=== PATIENT | female | born 1955 | race Caucasian/White ===

== ENCOUNTER → 2016-12-10 | Outpatient (CLI) | payer OTHER ==
[~2016-12-10] MED LIST: ALEVE220 MG PO; BENICAR HCT 201 EACH PO; CALCIUM 600 +1 EAC1 PO; CELEBREX 200 M200 MG PO; CYMBALTA20 MG PO; DILAUDID2 M1 PO; DYAZIDE 37.5-21 EACH PO; FENTANYL 1100 MCG/HR TP; GLUCOSAMINE &1 EACH PO; NEURONTIN 300300 M1 PO; NYSTATIN-TRIAMC15 G1 TP; PREVACID15 MG PO; TYLENOL P.M. E1 EAC3 PO; XANAX 0.5 MG0.5 M1 PO
== END ==
LOC: ULTRA 08:21
DX: N83.202 Unspecified ovarian cyst, left side (principal)

== ENCOUNTER → 2017-12-16 | Outpatient (CLI) | payer OTHER ==
[~2017-12-16] MED LIST changes: +CARVEDILOL12.5 MG PO; +COMPAZINE10 MG PO; +COZAAR 50 MG TA50 M1 PO; +GEODON20 MG PO; +GEODON40 MG PO; +MIRAPEX0.5 MG PO; +NIFEDIPINE ER30 M1 PO; +XANAX1 MG PO; +ZANTAC 150MG T150 MG PO
== END ==
LOC: CAT 11:03
DX: M43.26 Fusion of spine, lumbar region (principal); G89.29 Other chronic pain

== ENCOUNTER 2018-02-22 03:18 | Inpatient (IN) | payer OTHER ==
[~2018-02-22] VITALS: Ht 152.4 cm; Wt 56.2 kg
[2018-02-22] VITALS (7 sets, daily range): BP systolic 115–149; BP diastolic 72–97
[2018-02-22] MEDS ORDERED: CLONAZEPAM 1 MG1 M1 PO (04:02)
[2018-02-22] MEDS ORDERED: MIRAPEX0.5 MG PO (04:02)
[2018-02-22] MEDS ORDERED: DURAGESIC1 EAC4 INTRADERM (04:03)
[2018-02-22 04:06] LABS: ABSOLUTE NEUTROPHILS 3.8 thou/uL (1.4-8.2); BASOPHILS 0.8 % (0.0-2.0); HEMATOCRIT 40.1 % (37.0-47.0); HEMOGLOBIN 14.6 gm/dL (12.0-15.0); LYMPHOCYTES 22.3 % (24.0-44.0); MCHC 36.4 g/dL (28.0-37.0); MCV 90.5 fL (80.0-100.0); MONOCYTES 11.6 % (1.0-8.0); PLATELET COUNT 213 thou/uL (150-400); POLYS 63.3 % (36.0-66.0); RBC 4.43 mil/uL (4.20-5.00); RDW 13.3 % (10.5-14.5)
[2018-02-22 04:09] LABS: CALCIUM 9.4 mg/dL (8.5-10.1); CREATININE 0.9 mg/dL (0.6-1.0); POTASSIUM 3.5 mmol/L (3.5-5.1)
--- NOTE | 2018-02-22 06:11 | NUR ---
PATIENT ARRIVED PER CART. IS ALERT X 1-2. VERY LETHARGIC. AND SOMULANCE. WITH AMS. NO SKIN ISSUES. SKIN WARM AND DRY. WALKED FROM CART TO BED. TELE- SHOWS NSR. LUNGS CTA. SOME SLURRED SPEECH NOTED, BUT IS GETTING BETTER IN TIME. WILL BRING HER LIST OF ALLERGIES TO RN. REMAINS DROWSY. NO EDEMA NOTED. IV SITE HEALTHY IN RIGHT HAND. TAKING REGULAR DIET. WILL MONITOR FOR CHANGES. CONT PLAN OF CARE.
--- NOTE | 2018-02-22 06:27 | NUR ---
PATIENT WAS ALSO ADMITTED TO TO UNABLE TO CARRY ON A CONVERSATION, AND A WEAK UNSTEADY GAIT THE LAST [address]. [address] STOPPED ALL OF HER MEDS AT 0700 ON 02/21. HER FENTANYL PATCH WAS LAST PLACED ON 02/22 AT 0300. ER DID REMOVED THE FENTANYL PATCH THIS AM. WENT HOME TO GET LIST OF HER ALLERGIES. PATIENT EATING A SANDWISH AND WATER PER HER REQUEST. IS ALERT X 3, NOW. CONT TO MONITOR.
--- NOTE | 2018-02-22 06:47 | NUR ---
PATIENT REFUSED SCD'S
--- NOTE | 2018-02-22 19:35 | NUR ---
PT STABLE THROUGHOUT SHIFT. SOME PERIODS OF CONFUSION AND IMPULSIVENESS. PT RESTING COMFORTABLY, BED ALARM ON.
[2018-02-22 23:46] LABS: URINE BILIRUBIN NEGATIVE (Negative); URINE CLARITY CLEAR; URINE COLOR YELLOW; URINE GLUCOSE-RANDOM* NEGATIVE (Negative); URINE KETONES NEGATIVE (Negative); URINE PROTEIN (DIPSTICK) NEGATIVE (Negative); URINE SPECIFIC GRAVITY 1.015 (1.005-1.035)
[2018-02-22 23:47] LABS: URINE BLOOD NEGATIVE (Negative); URINE LEUKOCYTES-REFLEX NEGATIVE (Negative); URINE NITRITE-REFLEX NEGATIVE (Negative); URINE UROBILINOGEN 0.2 E.U./dl (0.2-1.0)
[2018-02-22 23:51] LABS: AMP/METHAMP Negative (Negative); BARBITURATES Negative (Negative); BENZODIAZEPINES POSITIVE (Negative); COCAINE Negative (Negative); METHADONE Negative (Negative); OPIATES Negative (Negative); PCP Negative (Negative)
[2018-02-23] MEDS ORDERED: MIRAPEX 0.250.25 M1 PO (07:41)
[2018-02-23] MEDS ORDERED: NORVASC5 MG PO (07:41)
[2018-02-23 07:48] VITALS: BP 134/96
== END 2018-02-23 08:09 | disposition home or self-care (01) | DRG 91 ==
LOC: ER 03:18 → EROBS 04:35 → 4W 05:17
PROVIDERS: Emergency Medicine; ADMIT Family Medicine
DX: G92 Toxic encephalopathy (principal); E43 Unspecified severe protein-calorie malnutrition; I10 Essential (primary) hypertension; K21.9 Gastro-esophageal reflux disease without esophagitis; R47.81 Slurred speech; F41.9 Anxiety disorder, unspecified; K58.9 Irritable bowel syndrome, unspecified; L40.9 Psoriasis, unspecified; G25.81 Restless legs syndrome; F31.9 Bipolar disorder, unspecified; G89.29 Other chronic pain; F51.04 Psychophysiologic insomnia; M54.9 Dorsalgia, unspecified; F17.210 Nicotine dependence, cigarettes, uncomplicated; Z98.891 History of uterine scar from previous surgery; Z88.1 Allergy status to other antibiotic agents; Z72.820 Sleep deprivation; Z90.710 Acquired absence of both cervix and uterus; Z88.8 Allergy status to other drugs, medicaments and biological substances; Z88.0 Allergy status to penicillin; Z82.49 Family history of ischemic heart disease and other diseases of the circulatory system
CPT/HCPCS: 10045

== ENCOUNTER → 2018-07-21 | Outpatient (CLI) | payer OTHER ==
[~2018-07-21] MED LIST changes: +CLONAZEPAM 1 MG1 M1 PO; +DURAGESIC1 EAC4 INTRADERM; +MIRAPEX 0.250.25 M1 PO; +NORVASC5 MG PO
== END ==
LOC: CAT 07:25
PROVIDERS: Nurse Practitioner
DX: J43.2 Centrilobular emphysema (principal)

== ENCOUNTER 2018-07-29 17:48 | Emergency (ER) | payer OTHER ==
[~2018-07-29] VITALS: Ht 152.4 cm; Wt 57.6 kg
[2018-07-29] MEDS ORDERED: TYLENOL EXTRA500 MG PO (18:53)
[2018-07-29 19:25] VITALS: BP 163/88
== END 2018-07-29 19:25 | disposition home or self-care (01) ==
LOC: ER 17:48
DX: S93.492A Sprain of other ligament of left ankle, initial encounter (principal); I10 Essential (primary) hypertension; K21.9 Gastro-esophageal reflux disease without esophagitis; G89.29 Other chronic pain; K58.9 Irritable bowel syndrome, unspecified; L40.9 Psoriasis, unspecified; Z98.890 Other specified postprocedural states; Z90.710 Acquired absence of both cervix and uterus; W18.39XA Other fall on same level, initial encounter; Y93.89 Activity, other specified; Y92.096 Garden or yard of other non-institutional residence as the place of occurrence of the external cause; Y99.8 Other external cause status

== ENCOUNTER → 2018-09-14 | Outpatient (CLI) | payer OTHER ==
[~2018-09-14] MED LIST changes: +TYLENOL EXTRA500 MG PO
== END ==
LOC: ULTRA 08:55
DX: R10.9 Unspecified abdominal pain (principal); R14.0 Abdominal distension (gaseous); Z91.048 Other nonmedicinal substance allergy status; Z88.8 Allergy status to other drugs, medicaments and biological substances

== ENCOUNTER 2019-01-18 14:25 | Emergency (ER) | payer OTHER ==
[~2019-01-18] VITALS: Ht 152.4 cm; Wt 63.5 kg
[2019-01-18] MEDS ORDERED: ALPRAZOLAM1 MG PO (16:37)
[2019-01-18] MEDS ORDERED: NORVASC 2.5 MG2.5 M1 PO (16:38)
[2019-01-18] MEDS ORDERED: TRAZODONE HCL100 MG PO (16:38)
[2019-01-18] MEDS ORDERED: MIRAPEX1 MG PO (16:39)
[2019-01-18] MEDS ORDERED: BUPROPION XL300 MG PO (16:40)
[2019-01-18] MEDS ORDERED: SEROQUEL 50 MG50 M1 PO (16:41)
[2019-01-18] MEDS ORDERED: PROTONIX40 M2 PO (16:41)
[2019-01-18] MEDS ORDERED: HYDROXYZINE HCL10 M1 PO (16:41)
[2019-01-18] MEDS ORDERED: BACLOFEN 10MG T10 MG PO (16:42)
[2019-01-18 16:47] LABS: HEMATOCRIT 46.3 % (37.0-47.0); HEMOGLOBIN 15.9 gm/dL (12.0-15.0); MCH 30.8 pg (26.0-34.0); MCHC 34.3 g/dL (28.0-37.0); MCV 89.9 fL (80.0-100.0); RBC 5.15 mil/uL (4.20-5.00); RDW 13.2 % (10.5-14.5); WBC 8.7 thou/uL (4.0-11.0)
[2019-01-18 17:00] LABS: CALCIUM 9.8 mg/dL (8.5-10.1); CREATININE 0.9 mg/dL (0.6-1.0); POTASSIUM 3.7 mmol/L (3.5-5.1)
[2019-01-18 17:06] LABS: ALBUMIN 3.8 g/dL (3.4-5.0); TOTAL BILIRUBIN 0.4 mg/dL (<0.1-1.0); TOTAL PROTEIN 7.8 g/dL (6.4-8.2)
[2019-01-18 17:31] LABS: ABSOLUTE NEUTROPHILS 5.5 thou/uL (1.4-8.2); ATYPICAL LYMPHS 1 %
[2019-01-18 17:32] LABS: LARGE PLATELETS RARE; PLATELET COUNT 262 thou/uL (150-400)
[2019-01-18 18:06] LABS: MAGNESIUM 2.1 mg/dL (1.8-2.4); TROPONIN-I <0.06 ng/mL (<0.06)
[2019-01-18 18:07] LABS: URINE BLOOD NEGATIVE (Negative); URINE COLOR YELLOW; URINE GLUCOSE-RANDOM* NEGATIVE (Negative); URINE KETONES NEGATIVE (Negative); URINE LEUKOCYTES-REFLEX NEGATIVE (Negative); URINE NITRITE-REFLEX NEGATIVE (Negative); URINE PROTEIN (DIPSTICK) NEGATIVE (Negative); URINE SPECIFIC GRAVITY >= 1.030 (1.005-1.035); URINE UROBILINOGEN 0.2 E.U./dl (0.2-1.0)
[2019-01-18 18:09] LABS: ICTOTEST (BILI CONFIRMATORY) Negative (Negative); URINE BILIRUBIN NEGATIVE (Negative); URINE CLARITY CLOUDY
[2019-01-18 18:10] VITALS: BP 187/109
[2019-01-18 18:13] LABS: AMP/METHAMP Negative (Negative); BARBITURATES Negative (Negative); BENZODIAZEPINES POSITIVE (Negative); COCAINE Negative (Negative); METHADONE Negative (Negative); OPIATES Negative (Negative); PCP Negative (Negative)
--- NOTE | 2019-01-19 08:31 | EKG ---
[address] [place] [address] ELECTROCARDIOGRAM REPORT Name: PATRICA GARCIA Room #: DEP [facility] [id number] Admission: 01/18/19 Attend Phys: Discharge: 01/18/19 Date of : 57 Report #: [id number] THIS REPORT FOR: //name// [facility] ED Test Date: 2019-01-18 Test Time: 17:47:18 Pat Name: PATRICA GARCIA Department: Room: Gender: F Overhauler: : 1955 Requested By: Asaf Armenta Order Number: [id number] MD: Kevin Villela Measurements Intervals [place] Rate: 86 P: AL: QRS: 116 QRSD: 95 T: QT: 369 QTc: 442 Interpretive Statements Sinus rhythm Poor R wave progression Nonspecific ST and T wave abnormality Compared to ECG 11/06/2017 22:18:34 Nonspecific change in the ST and T-wave segments Electronically Signed On 01-19-2019 8:31:22 PATIENT SERVICE COORDINATOR by Kevin Villela [email or web address] <ELECTRONICALLY SIGNED> By: Kevin Villela MD, [facility] 01/19/19 0831 46 46 Kevin Villela MD, FAC /EPI
== END 2019-01-18 18:46 | disposition home or self-care (01) ==
LOC: ER 14:25
PROVIDERS: Emergency Medicine
DX: R41.82 Altered mental status, unspecified (principal); T42.8X5A Adverse effect of antiparkinsonism drugs and other central muscle-tone depressants, initial encounter; G89.29 Other chronic pain; M54.9 Dorsalgia, unspecified; I10 Essential (primary) hypertension; K21.9 Gastro-esophageal reflux disease without esophagitis; Z98.890 Other specified postprocedural states; Z90.710 Acquired absence of both cervix and uterus; Z86.018 Personal history of other benign neoplasm; Z88.0 Allergy status to penicillin; Z88.2 Allergy status to sulfonamides; Z88.5 Allergy status to narcotic agent; Z87.891 Personal history of nicotine dependence; Y92.89 Other specified places as the place of occurrence of the external cause

== ENCOUNTER → 2019-02-19 | Outpatient (CLI) | payer OTHER ==
[~2019-02-19] MED LIST changes: +ALPRAZOLAM1 MG PO; +BACLOFEN 10MG T10 MG PO; +BUPROPION XL300 MG PO; +HYDROXYZINE HCL10 M1 PO; +MIRAPEX1 MG PO; +NORVASC 2.5 MG2.5 M1 PO; +PROTONIX40 M2 PO; +SEROQUEL 50 MG50 M1 PO; +TRAZODONE HCL100 MG PO
== END ==
LOC: MRI 12:58
DX: I63.9 Cerebral infarction, unspecified (principal); Z88.8 Allergy status to other drugs, medicaments and biological substances

== ENCOUNTER → 2019-03-02 | Outpatient (CLI) | payer OTHER ==
[~2019-03-02] VITALS: Ht 152.4 cm; Wt 64.0 kg
[~2019-03-02] MED LIST changes: +ASA81BEC PO; +BUPROPION PO; -BUPROPION XL300 MG PO; -NORVASC 2.5 MG2.5 M1 PO; +NORVASC10 MG PO
[2019-03-02 08:21] VITALS: BP 146/90
--- NOTE | 2019-03-02 08:45 | NUR ---
Pain Clinic Assessment: 1. History of Osteoarthritis: BACK History of Rheumatoid Arthritis: N 2. Height: 5 ft. 0 in. 152.4 cm. Weight: 141.0 lb. oz. 63.957 kg. Patient's BMI: 27.5 3. Vital Signs: BP: 146/90 Pulse: 82 Resp: 16 Temp: 02 Sat: 98 ECG Mon: 4. Pain Intensity: 7 5. Fall Risk: Dizziness: Y Needs help standing or walking: Y Fallen in the last 3 months: N Fall risk comments: 6. Patient on Blood Thinner: None 7. History of Hypertension: Y 8. Opioid Therapy greater than 6 weeks: N Opiate Contract Signed: 9. Risk Assessment Tool Provided: 0-3-LOW RISK 10. Functional Assessment Tool: 11. Recreational Drug Use: Never Drug Type: Tobacco Use: Current Every Day Smoker Tobacco Type: Cigarettes Amount or Packs/day: 1/2 How Many Years: 30 Alcohol Use: No Frequency: Quant:
--- NOTE | 2019-03-09 08:39 | HPC ---
[facility] [address] [place] [address] PAIN MANAGEMENT CONSULTATION Name: PATRICA GARCIA Room #: REG KARLEE Brian.#: [id number] Admission: 03/02/19 Attend Phys: Bruce Fulton DO Discharge: Date of : 57 Report #: [id number] THIS REPORT FOR: //name// CC: Bruce Da Silva NP DATE OF SERVICE: 03/02/2019 CHIEF COMPLAINT: Bilateral upper buttock pain. HISTORY OF PRESENT ILLNESS: As you know, the patient is a very pleasant 63-year-old female referred to our service by nurse practitioner Renetta Da Silva with [facility] to undergo bilateral SI joint injections under fluoroscopic guidance to address bilateral low back pain. The patient indicates pain has been present since 06/02/2015. She sought evaluation with [facility] at their visit of 02/08/2019 and advised a trial of SI joint injections. She indicates no specific injury or trauma that may have led to continuation of low back symptoms. Recent CT examination was unremarkable for evidence of fracture or subluxation. There is posterior fusion at L3 through L5, which appears unremarkable. Due to these lack of significant findings, the patient was referred to our clinic to trial injection therapy. The patient indicates today pain is constant. She describes the pain as burning and aching, places current pain score 6/10, daily average of 7/10, worst pain has been 9/10. The patient states that bending and stooping over exacerbates symptoms, nothing tends to improve pain. She has been referred to our clinic to trial bilateral SI joint injections under fluoroscopic guidance. PAST MEDICAL HISTORY: 1. Hypertension. 2. Chronic stomach problems. 3. History of renal cell carcinoma. 4. Chronic axial back pain. 5. Restless leg syndrome. 6. Depression. PAST SURGICAL HISTORY: 1. Eye surgery. 2. section x 3. 3. Hysterectomy. 4. Cervical spine surgery. 5. Thoracic surgery. 6. Trigger finger release. 7. Excision of right cancerous kidney. 8. Herniorrhaphy x 2. [facility] [address] [place] [address] PAIN MANAGEMENT CONSULTATION Name: PATRICA GARCIA Room #: REG KARLEE Torres.#: [id number] Admission: 03/02/19 Attend Phys: Bruce Fulton DO Discharge: Date of : 57 Report #: [id number] 9. Colectomy. 10. Lumbar spine surgery. SOCIAL HISTORY: The patient reports she is a continued smoker, smokes half pack to 3 quarters pack per day and has done so for greater than 30 years. Denies IV or illicit drug use. Denies any chronic alcohol use. She states she is on disability. She is not in the workforce. She is receiving disability income. She is not in litigation in regards to pain. REVIEW OF SYSTEMS: Positive for fatigue and weakness, wearing corrective eyewear, neck pain, midback pain, low back pain, numbness and tingling sensations, memory loss with confusion, continued tobacco habituation. All other review of systems negative per 12-point review of systems, and those listed in history of present illness. Pain impact score 44/70 indicating moderate to severe interference of daily activities secondary to pain. ALLERGIES: PERCOCET, OXYCODONE, CLINDAMYCIN, SURGICAL TAPE, DARVOCET, CYCLOBENZAPRINE. CURRENT MEDICATIONS: Alprazolam 1 mg t.i.d., amlodipine 10 mg once a day, pramipexole 3 mg per day, bupropion XL 150 mg once a day, pantoprazole 40 mg per day, trazodone 100 mg 2 tabs p.o. at bedtime, aspirin 81 mg per day, ziprasidone 40 mg b.i.d. IMAGING: CT of the lumbar spine shows a fusion at L3 through L5. There is no subluxation, no change in positioning of the hardware, appears stable. No new fractures. PQRS: The patient has known arthritic changes of the lumbar spine, bilateral SI joints, bilateral hips, no rheumatoid arthritis. Placing pain intensity 7/10. She is a fall risk, but has not had a fall in last 3 months. She does utilize ambulatory devices for balance. She is not on blood thinners, but is treated for hypertension. She is not on chronic opioids. She has a low opioid addiction potential. Pain impact score 44/70 indicating moderate to severe interference of daily activities secondary to pain. PHYSICAL EXAMINATION: VITAL SIGNS: Blood pressure 146/90, pulse is 82, respiratory rate 16 and unlabored. The patient is 98% on room air. Height 5 feet tall, weight 141 pounds, BMI calculated 27.5. GENERAL: Well-developed, well-nourished, well-hydrated 63-year-old female appearing stated age, smells strongly of tobacco smoke, placing current pain score at 7/10. HEENT: Normocephalic, atraumatic. Pupils equal, round, reactive to light. [facility] [address] [place] [address] PAIN MANAGEMENT CONSULTATION Name: PATRICA GARICA Room #: REG CLHarjit Emery#: [id number] Admission: 03/02/19 Attend Phys: Bruce Fulton DO Discharge: Date of : 57 Report #: [id number] Extraocular muscles are intact. Sclerae nonicteric without injection. NEUROLOGIC: Cranial nerves 2-12 grossly intact. Speech appears fluent. LUNGS: Decreased breath sounds bilaterally, though there is no wheezing, rhonchi or rales. CARDIOVASCULAR: Regular. No appreciable gallop, no rub. ABDOMEN: Soft, nontender, nondistended. Bowel sounds appear present. EXTREMITIES: Show no clubbing, no cyanosis, and no edema. MUSCULOSKELETAL: The patient has palpatory tenderness over the paraspinal musculature of the lumbar spine. She also has exquisite tenderness over the bilateral SI joints and the L5-S1 facet joints bilaterally. Seated straight leg raising negative. Supine straight leg raising is negative. Preet's test is positive for SI joint dysfunction, but not intrinsic hip pathology. Lumbar provocation testing is met with increasing axial back pain and limited range of motion both in active and passive range of motion. Muscle bulk and tone appears equal and symmetrical in lower extremities, deconditioning of the lower extremities noted. ASSESSMENT: 1. Bilateral sacroiliac joint dysfunction. 2. Sacroiliac joint osteoarthritis. 3. Chronic axial back pain. 4. Facet arthropathy of the lumbar spine. 5. Lumbar degeneration. PLAN: 1. Based on today's physical exam and history the patient has provided, the description the patient uses in regards to pain, likely source of the patient's majority of pain is coming from the SI joints. The patient has been referred to our clinic by her neurosurgery team to undergo bilateral SI joint injections under fluoroscopic guidance to determine if her symptoms would improve with interventional treatments. The patient and I discussed at length today the risks and the benefits of this procedure. The following was discussed with the patient. The risks of this procedure include but are not necessarily limited to bleeding, bruising, infection, worsening pain, no relief of pain, also risk of temporary or permanent muscle weakness, temporary or permanent nerve damage, possible paralysis and . The patient states understood and wished to proceed. We will see the patient back in followup visit on an as needed basis for possible next in the series of bilateral SI joint injections assuming good efficacy with today's treatment option. If the patient does not receive much in the way of benefit, she is to return to the referring nurse practitioner to discuss other treatment options. We wish to thank nurse practitioner, Renetta Da Silva for the opportunity to see [facility] [address] [place] [address] PAIN MANAGEMENT CONSULTATION Name: PATRICA GARCIA Room #: REG [facility] Brian.#: [id number] Admission: 03/02/19 Attend Phys: Bruce Fulton DO Discharge: Date of : 57 Report #: [id number] the patient in consultation. We will keep you apprised of response to treatment as we address SI joint dysfunction. Again, we wish to thank you for the opportunity to see this patient in consultation. PROCEDURE NOTE DESCRIPTION OF PROCEDURE: Bilateral SI joint injections under fluoroscopic guidance. After obtaining written consent, the patient was taken back to fluoroscopy suite, placed in prone position with pillow under abdomen to decrease lumbar lordosis. The gluteal sacral area overlying the left and right sacroiliac joints were prepped and draped in aseptic fashion. A medial to lateral oblique projection allowed separation of the anterior and posterior branches of the joint space to be visualized. Skin and subcutaneous tissue overlying target sites of injections were then anesthetized with 3 mL of 1% lidocaine using a 27-gauge 1-1/4 inch needle, two 22-gauge 3-1/2 inch spinal needles with bent tips were directed to the inferior aspect of each of the sacroiliac joint using a posterior approach. A "giving away" at the needle hubs were noted once the dorsal sacroiliac and interosseous ligaments were engaged on each side. After negative aspiration for heme, a total of 0.3 mL of Omnipaque was injected, outlining the inferior recess of the joint on both the left and right side. Provocation responses consistent of intense buttock pain were negative. After negative aspiration for heme, 1.5 mL of a solution containing 2 mL, 40 mg per mL, 80 mg total triamcinolone along with 1 mL bupivacaine 0.5% was injected slowly. [place] were retracted detention, flushed with 1 mL of 1% lidocaine and then removed. Sterile bandage was placed over each of the injection sites. There were no new motor deficits or sensory deficits present in lower extremity following procedure. The patient tolerated the procedure well, carefully escorted to recovery room in stable condition. No apparent complications. After meeting discharge criteria, the patient discharged home. <ELECTRONICALLY SIGNED> By: Bruce Fulton DO 03/09/19 0839 [id number] Bruce Fulton DO /nt
== END | disposition home or self-care (01) ==
LOC: PAIN 06:44
DX: M53.3 Sacrococcygeal disorders, not elsewhere classified (principal); M47.898 Other spondylosis, sacral and sacrococcygeal region; G89.29 Other chronic pain; M12.88 Other specific arthropathies, not elsewhere classified, other specified site; I10 Essential (primary) hypertension; G25.81 Restless legs syndrome; F32.9 Major depressive disorder, single episode, unspecified; Z98.890 Other specified postprocedural states; Z79.899 Other long term (current) drug therapy

== ENCOUNTER → 2019-08-10 | Outpatient (CLI) | payer OTHER | LOC: SJCVCIMAG 08-03 09:23 | PROVIDERS: ATTEND Internal Medicine | DX: I08.1 Rheumatic disorders of both mitral and tricuspid valves (principal); E78.5 Hyperlipidemia, unspecified; I10 Essential (primary) hypertension; F17.200 Nicotine dependence, unspecified, uncomplicated; Z82.49 Family history of ischemic heart disease and other diseases of the circulatory system ==

== ENCOUNTER → 2020-03-07 | Outpatient (CLI) | payer OTHER | LOC: CAT 11:10 | PROVIDERS: ATTEND Family Medicine | DX: K63.89 Other specified diseases of intestine (principal); I51.7 Cardiomegaly; Z98.890 Other specified postprocedural states ==